=== PATIENT | female | born 1975 | race Caucasian/White ===

== ENCOUNTER 2016-09-20 13:37 | Emergency (ER) | payer MEDICARE ==
[2016-09-20 14:03] VITALS: BP 109/75
--- NOTE | 2016-09-20 14:52 | RAD ---
INDICATION: Left foot pain COMPARISON: None TECHNIQUE: AP, lateral, and oblique views were obtained. FINDINGS: The bony structures, joint spaces, and soft tissues are normal for age. IMPRESSION: NO ACUTE FRACTURE.
--- NOTE | 2016-09-20 14:53 | RAD ---
INDICATION: Left ankle injury COMPARISON: None TECHNIQUE: AP, lateral, and oblique views were obtained. FINDINGS: The bony structures, joint spaces, and soft tissues are normal for age. IMPRESSION: NO ACUTE FRACTURE.
--- NOTE | 2016-09-20 15:12 | UC ---
Lower Extremity/Ankle HPI - HPI Summary HPI Summary: PATIENT WITH A PMHX OF COMPLEX REGIONAL PAIN SYNDROME PRESENTS TO WITH CC OF LEFT FOOT PAIN WITH ANKLE PAIN AFTER FALLING 2 DAYS AGO OFF A SIDEWALK. SHE STATES SHE IS UNABLE TO MOVE ALL TOES IN THE LEFT FOOT AND HER FOOT IS COLD. SHE HAS GOOD PULSES BILATERALLY +2. THE LEFT FOOT IS SLIGHTLY COLDER THAN THE RIGHT. SHE DENIES OTHER SYMPTOMS. SHE IS A DIABETIC WITH HTN AND CHRONIC PAIN TO WHICH SHE TAKES PAIN MEDICATIONS FOR THROUGH THE PAIN CLINIC. - History of Current Complaint Hx Obtained From: Patient Hx Last Menstrual Period: 08/02/16 ?: No Onset/Duration: Sudden Onset Severity Initially: Moderate Severity Currently: Moderate Pain Intensity: 8 Aggravating Factor(s): Standing, Ambulation Alleviating Factor(s): Rest, Elevation Able to Bear Weight: Yes - Risk Factors Gout Risk Factors: Age Over 40, Diabetes, Hypertension, Renal Disease, Hyperlipidemia, Peripherial Vascular Disease DVT Risk Factors: Negative Septic Arthritis Risk Factor: Immunosuppressed <Suzanna Barker - Last Filed: 09/20/16 15:07> <Michelle March - Last Filed: 09/21/16 08:08> - History of Current Complaint Chief Complaint: UCLowerExtremity Stated Complaint: LEFT FOOT/ANKLE (FALL) Time Seen by Provider: 09/20/16 14:07 - Allergies/Home Medications Allergies/Adverse Reactions: Allergies Allergy/AdvReac Type Severity Reaction Status Date / Time No Known Allergies Allergy Verified 09/20/16 14:03 Home Medications: Home Medications DULoxetine DR CAP* [Cymbalta CAP*] 60 mg PO BEDTIME 09/20/16 [History Confirmed 09/20/16] Diazepam TAB(*) [Valium TAB(*)] 2 mg PO TID PRN 09/20/16 [History Confirmed ] Furosemide TAB* [Lasix TAB*] 20 mg PO BID 09/20/16 [History Confirmed 09/20/16] Levothyroxine TAB (NF) [Synthroid TAB (NF)] 175 mcg PO DAILY 09/20/16 [History Confirmed 09/20/16] QUEtiapine TAB* [SEROquel TAB*] 50 mg PO BEDTIME 09/20/16 [History Confirmed ] metFORMIN* [Glucophage 500 MG TAB *] 1,000 mg PO BID 09/20/16 [History Confirmed 09/20/16] oxyCODONE SR TAB(*) [Oxycontin 10 mg (*)] 30 mg PO BID 09/20/16 [History Confirmed 09/20/16] oxyCODONE/Acetamin 5/325 MG* [Percocet 5/325 TAB*] 1 tab PO SEE INSTRUCTIONS [History Confirmed 09/20/16] PMH/Surg Hx/FS Hx/Imm Hx Previously Healthy: Yes - DIABETES, THYROID DISEASE, COPD, SMOKER, PVDM CRPS Endocrine History Of: Reports: Diabetes, Thyroid Disease - hypo Respiratory History Of: Reports: COPD - bronchitis - Surgical History Surgical History: Yes Surgery Procedure, Year, and Place: appendectomy. gallbladder. hernia/ umbilical - Family History Known Family History: Positive: Unknown - Social History Occupation: Unemployed Lives: With Family Alcohol Use: None Substance Use Type: None Smoking Status (MU): Heavy Every Day Tobacco Smoker Type: Cigarettes Amount Used/How Often: 1 ppd When Did the Patient Quit Smoking/Using Tobacco: 15 years Household Exposure Type: Cigarettes <Suzanna Barker - Last Filed: 09/20/16 15:07> Review of Systems Constitutional: Negative Skin: Other - PVD OVER BILATERAL FEET, CHRONIC REGIONAL PAIN SYNDROME Eyes: Negative Respiratory: Negative Cardiovascular: Negative Gastrointestinal: Negative Motor: Decreased ROM, Weakness Neurovascular: Decreased Sensation Musculoskeletal: Arthralgia, Decreased ROM Neurological: Negative Psychological: Negative All Other Systems Reviewed And Are Negative: Yes <Suzanna Barker - Last Filed: 09/20/16 15:07> Physical Exam Triage Information Reviewed: Yes Appearance: Well-Appearing, No Pain Distress, Well-Nourished Vital Signs: Initial Vital Signs Temp 98.0 F 09/20/16 13:56 Pulse 88 09/20/16 13:56 Resp 17 09/20/16 13:56 BP 109/75 09/20/16 13:56 Pulse Ox 99 09/20/16 13:56 Vital Signs Reviewed: Yes Eye Exam: Normal Eyes: Positive: Conjunctiva Clear, Conjunctiva Inflamed ENT Exam: Normal Neck exam: Normal Neck: Positive: No Lymphadenopathy Respiratory Exam: Normal Respiratory: Positive: Chest non-tender Cardiovascular Exam: Normal Cardiovascular: Positive: RRR Musculoskeletal: Positive: ROM Limited @, Other: - Thorough physical exam was performed, focusing on ankle special tests. Pain on palpation over lateral aspect and superior aspect of ankle over ATFL and deltoid ligaments. No pain on palpation over medial side. Due to patient pain around injury, physical exam was limited. Unable to perform anterior drawer test or talar tilt test d/t pain. Zuleta test negative. Limited ROM. Dorsiflexion, great toe extension and plantar flexion intact however limited. No pain on palpation over medial or lateral lower extremity. No pain with knee flexion. Pulses intact bilaterally. 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 No pallor noted bilaterally. No cchymosis and swelling noted on lateral aspect. No lesion or disruption of skin is seen. Unable to bear weight. Neurological Exam: Normal Neurological: Positive: Alert Psychological: Positive: Normal Response To Family, Age Appropriate Behavior Skin Exam: Normal <Suzanna Barker - Last Filed: 09/20/16 15:07> Vital Signs: Initial Vital Signs Temp 98.0 F 09/20/16 13:56 Pulse 88 09/20/16 13:56 Resp 17 09/20/16 13:56 BP 109/75 09/20/16 13:56 Pulse Ox 99 09/20/16 13:56 <Michelle March - Last Filed: 09/21/16 08:08> Lower Extremity Course/Dx - Differential Dx/Diagnosis Differential Diagnosis/HQI/PQRI: Compartment Syndrome, Sprain, Strain Provider Diagnoses: Based on [place] Ankle Rules, patient sent to imaging. Xray negative for fracture or other acute findings. Medial and lateral distal lower extremity without pain and x-rays show no widening of the ankle joint regarding low suspicion for Maisonneuve fx. Ankle was bri wrapped to patient comfort to allow for immobilization for this period of time. Patient is on chronic pain medications and does not need rx. Good pulses +2 bilaterally. Slight temperature change between right and left feet with left foot colder. Denies numbess or tingling. Crutches given. Patient given orthopedic follow up in 5-7 days. Encouraged Ibuprofen 600mg three times daily with meals for pain. Return precautions given. Educated patient regarding ankle injuries and healing time and the possibility of further evaluation and imaging as orthopedist sees fit. <Suzanna Barker - Last Filed: 09/20/16 15:07> Discharge <Suzanna Barker - Last Filed: 09/20/16 15:07> <iMchelle March - Last Filed: 09/21/16 08:08> - Discharge Plan Condition: Stable Disposition: HOME Patient Education Materials: Muscle Strain (ED) Referrals: Mariano Bee MD [Medical Doctor] - Heidi Jacobo NP [Primary Care Provider] - Additional Instructions: FOLLOW UP WITH PCP I HAVE GIVE YOU FOLLOW UP WITH ORTHO IF SYMPTOMS ARE NOT IMPROVING Attestation Statement User Type: Provider - I was available for consult. This patient was seen by the JUAN LUIS. The patient was not presented to, seen by, or examined by me. -Melany <Michelle March - Last Filed: 09/21/16 08:08>
--- NOTE | 2016-09-28 18:37 | PN ---
Progress Note - Progress Note Note: LEFT LATERAL ANKLE STRAIN
== END 2016-09-20 15:25 | disposition home or self-care (01) ==
LOC: UCCORT 13:37
DX: S96.912A Strain of unspecified muscle and tendon at ankle and foot level, left foot, initial encounter (principal); W19.XXXA Unspecified fall, initial encounter; Y92.480 Sidewalk as the place of occurrence of the external cause; Y93.89 Activity, other specified; G90.522 Complex regional pain syndrome I of left lower limb; E11.9 Type 2 diabetes mellitus without complications; Z79.84 Long term (current) use of oral hypoglycemic drugs; E03.9 Hypothyroidism, unspecified; J44.9 Chronic obstructive pulmonary disease, unspecified; Z90.49 Acquired absence of other specified parts of digestive tract; F17.210 Nicotine dependence, cigarettes, uncomplicated
CPT/HCPCS: 99212; G0463